=== PATIENT | female | born 1950 ===

== ENCOUNTER 2020-02-08 08:15 | Inpatient (IN) ==
[~2020-02-08 08:15] MED LIST: Buffered Lidocaine 1% SYRIN 1 ml INTRADERM ONE; Famotidine IV 10 MG/ML 2 ml VIAL (20 mg) IV ONE; Lactated Ringers 1000 ml BAG 1,000 ML IV SCH; Sodium Citrate/Citric Acid LIQ 15 ML UDC PO ONE
[2020-02-08] MEDS ORDERED: ceFAZolin 2 GM PREMIX 2 GM/50 ML BAG ONE (08:45)
[2020-02-08] MEDS ORDERED: Famotidine IV 10 MG/ML 2 ml VIAL (20 mg) ONE (08:45)
[2020-02-08] MEDS ORDERED: ROPIVACAINE 5 MG/ML 30 ML BTL (0.5%) ONE ×2 (09:50→10:21)
[2020-02-08] MEDS ORDERED: Lidocaine 1% MPF 5 ML VIAL ONE (10:21)
[2020-02-08] MEDS ORDERED: Midazolam 5 mg/5 ml VIAL 1 mg/ml 5 ml VIAL (5 mg) ONE (10:22)
[2020-02-08] MEDS ORDERED: fentaNYL 100 mcg/2 ml 50 MCG/ML VIAL ONE (10:24)
[2020-02-08] MEDS ORDERED: Ondansetron 4 mg VIAL 2 MG/ML 2 ml VIAL IV PRN ×2 (11:56→14:07)
[2020-02-08] MEDS ORDERED: HYDROmorphone 1 MG/1 ML SYRINGE IV PRN (11:56)
[2020-02-08] MEDS ORDERED: fentaNYL 100 mcg/2 ml 50 MCG/ML VIAL IV PRN (11:56)
[2020-02-08] MEDS ORDERED: Naloxone 0.4 mg VIAL 0.4 mg/ml 1 ml VIAL IV PRN (11:56)
[2020-02-08] MEDS ORDERED: Dexamethasone IV 4 MG/ML VIAL 1 ml VIAL ONE (12:06)
[2020-02-08] MEDS ORDERED: oxyCODONE/Acetamin 5/325 mg TAB PO PRN ×2 (14:07)
[2020-02-08] MEDS ORDERED: Lactulose 30 ml UDC PO PRN (14:07)
[2020-02-08] MEDS ORDERED: Morphine 2 MG/ML SYRINGE IV PRN (14:07)
[2020-02-08] MEDS ORDERED: Magnesium Hydroxide LIQ 30 ML UDC PO PRN (14:07)
[2020-02-08] MEDS ORDERED: diPHENhydraMINE 25 mg TAB PO PRN (14:07)
[2020-02-08] MEDS ORDERED: Ondansetron ODT 4 mg TAB 4 MG TAB PO PRN (14:07)
[2020-02-08] MEDS ORDERED: diPHENhydraMINE IV 50 MG/ML 1 ml VIAL (BENADRYL) IV PRN (14:07)
[2020-02-08] MEDS: Lactated Ringers 1000 ml BAG 1,000 ML IV SCH (15:27)
[2020-02-08] MEDS: ceFAZolin 1 GM ADVAN 1 GM in NS 0.9% 50 ML 50 ML IVPB SCH (22:36)
[2020-02-08] MEDS: Magnesium Hydroxide LIQ 30 ML UDC PO SCH (22:37)
[2020-02-09] MEDS ORDERED: Polyethylene Glycol 3350 17 GM PACKET PO PRN (00:01)
[2020-02-09] MEDS: Lactated Ringers 1000 ml BAG 1,000 ML IV SCH (01:56)
[2020-02-09] MEDS: ceFAZolin 1 GM ADVAN 1 GM in NS 0.9% 50 ML 50 ML IVPB SCH ×2 (03:26→11:15)
[2020-02-09 06:20] LABS: Hematocrit 29 % (35-47); Hemoglobin 9.9 g/dL (12.0-16.0); Platelet Count 205 10^3/uL (150-450)
[2020-02-09 07:12] LABS: Calcium 8.8 mg/dL (8.6-10.3); EGFR African American 109.7 (>60); EGFR Non-African American 90.6 (>60); Potassium 4.2 mmol/L (3.5-5.0)
[2020-02-09] MEDS: Magnesium Hydroxide LIQ 30 ML UDC PO SCH (08:36)
[2020-02-09] MEDS ORDERED: Vitamin THERAPEUTIC TAB PO SCH (09:00)
[2020-02-09 11:51] VITALS: BP 130/65
== END 2020-02-09 15:30 | disposition home health service (06) | DRG 470 ==
LOC: AA 08:30 → SSU 14:07
PROVIDERS: ADMIT Orthopaedic Surgery Adult Reconstructive Orthopaedic Surgery; ATTEND Orthopaedic Surgery Adult Reconstructive Orthopaedic Surgery

== ENCOUNTER 2020-08-22 06:22 | Inpatient (IN) ==
[~2020-08-22 06:22] MED LIST changes: +Dexamethasone IV 4 MG/ML VIAL 1 ml VIAL IV SLOW PU ONE; -Sodium Citrate/Citric Acid LIQ 15 ML UDC PO ONE
[2020-08-22] MEDS ORDERED: Phenylephrine IV 10 MG/ML 1 ml VIAL ONE (06:56)
[2020-08-22] MEDS ORDERED: Famotidine IV 10 MG/ML 2 ml VIAL (20 mg) ONE (07:06)
[2020-08-22] MEDS ORDERED: Dexamethasone IV 4 MG/ML VIAL 1 ml VIAL ONE (07:06)
[2020-08-22] MEDS ORDERED: ceFAZolin 2 GM PREMIX 2 GM/50 ML BAG ONE (07:06)
[2020-08-22] MEDS ORDERED: ROPIVACAINE 5 MG/ML 30 ML BTL (0.5%) ONE (07:22)
[2020-08-22] MEDS ORDERED: Ropivacaine 5 MG/ML 20 ML VIAL 0.5% (100 MG) ONE (07:27)
[2020-08-22] MEDS ORDERED: fentaNYL 100 mcg/2 ml 50 MCG/ML VIAL ONE (07:43)
[2020-08-22] MEDS ORDERED: Midazolam 2 mg/2 ml VIAL 1 mg/ml 2 ml VIAL (2 mg) ONE (07:43)
[2020-08-22] MEDS ORDERED: Ondansetron 4 mg VIAL 2 MG/ML 2 ml VIAL ONE (08:40)
[2020-08-22] MEDS ORDERED: Morphine 4 MG/ML VIAL (1 ml) IV PRN (09:06)
[2020-08-22] MEDS ORDERED: Naloxone 0.4 mg VIAL 0.4 mg/ml 1 ml VIAL IV PRN (09:06)
[2020-08-22] MEDS ORDERED: Prochlorperazine 5 mg/ml 2 ml VIAL (10 mg) IV PRN (09:06)
[2020-08-22] MEDS ORDERED: fentaNYL 100 mcg/2 ml 50 MCG/ML VIAL IV PRN (09:06)
[2020-08-22] MEDS ORDERED: Acetaminophen IV 1 GM/100ML 100 ML ONE (09:08)
[2020-08-22] MEDS ORDERED: diPHENhydraMINE 25 mg TAB PO PRN (09:15)
[2020-08-22] MEDS ORDERED: Magnesium Hydroxide LIQ 30 ML UDC PO PRN (09:15)
[2020-08-22] MEDS ORDERED: Morphine 2 MG/ML SYRINGE IV PRN (09:15)
[2020-08-22] MEDS ORDERED: Ondansetron 4 mg VIAL 2 MG/ML 2 ml VIAL IV PRN (09:15)
[2020-08-22] MEDS ORDERED: Lactulose 30 ml UDC PO PRN (09:15)
[2020-08-22] MEDS ORDERED: diPHENhydraMINE IV 50 MG/ML 1 ml VIAL (BENADRYL) IV PRN (09:15)
[2020-08-22] MEDS ORDERED: Ondansetron ODT 4 mg TAB 4 MG TAB PO PRN (09:15)
[2020-08-22] MEDS: Lactated Ringers 1000 ml BAG 1,000 ML IV SCH ×2 (12:00→22:11)
[2020-08-22] MEDS: ceFAZolin 1 GM ADVAN 1 GM in NS 0.9% 50 ML 50 ML IVPB SCH (16:48)
[2020-08-22] MEDS: Magnesium Hydroxide LIQ 30 ML UDC PO SCH (20:02)
[2020-08-23] MEDS: ceFAZolin 1 GM ADVAN 1 GM in NS 0.9% 50 ML 50 ML IVPB SCH ×2 (00:33→08:34)
[2020-08-23 05:26] LABS: Hematocrit 28 % (35-47); Hemoglobin 9.2 g/dL (12.0-16.0); Mean Platelet Volume 8.1 fL (7.4-10.4); Platelet Count 205 10^3/uL (150-450)
[2020-08-23 05:43] LABS: Calcium 8.7 mg/dL (8.6-10.3); EGFR African American 109.7 (>60); EGFR Non-African American 90.6 (>60); Potassium 4.6 mmol/L (3.5-5.0)
[2020-08-23 07:46] VITALS: BP 131/68
[2020-08-23] MEDS: Magnesium Hydroxide LIQ 30 ML UDC PO SCH (08:34)
[2020-08-23] MEDS ORDERED: Vitamin THERAPEUTIC TAB PO SCH (09:00)
== END 2020-08-23 13:05 | disposition home or self-care (01) | DRG 470 ==
LOC: AA 06:22 → INTOOBSV 06:22 → SSU 12:03
PROVIDERS: ADMIT Orthopaedic Surgery Adult Reconstructive Orthopaedic Surgery; ATTEND Orthopaedic Surgery Adult Reconstructive Orthopaedic Surgery